=== PATIENT | male | born 1995 | race Two or more races ===

== ENCOUNTER 2018-05-23 16:10 | Emergency (ER) | payer SELFPAY ==
[~2018-05-23] VITALS: Ht 172.7 cm; Wt 90.7 kg
[2018-05-23 16:45] VITALS: BP 121/69
[2018-05-23] MEDS ORDERED: TYLENOL EXTRA500 MG ORAL (17:05)
[2018-05-23] MEDS ORDERED: CEPHALEXIN500 MG ORAL (17:05)
--- NOTE | 2018-05-23 17:05 | Emergency Room Report ---
History of Present Illness General Chief Complaint: Skin Rash/Abscess Source: Patient Present Illness HPI 22-year-old male patient presents ER complaining of skin infection for the past 2 days. Patient reports he had a pimple in his suprapubic region that grew in size and became erythematous and swollen. Reports pain. Reports mild drainage 2 days ago, states has not drained since that time. Denies fever, chest pain, shortness of breath, dysuria, hematuria. Reports not taking medication for relief of symptoms. reports girlfriend recently had similar symptoms. Reports hx of shaving pubic hair. Allergies: Coded Allergies: No Known Allergies (Unverified , 05/23/18) Patient History Past Medical History: see triage record Reviewed Nursing Documentation: PMH: Agreed; PSxH: Agreed Nursing Documentation-PMH Past Medical History: No Stated History Review of Systems All Other Systems: negative except mentioned in HPI Physical Exam Vital Signs Date Time Temp Pulse Resp B/P (MAP) Pulse Ox O2 Delivery O2 Flow Rate FiO2 05/23/18 16:25 97.9 88 17 121/69 98 Room Air Sp02 EP Interpretation: reviewed, normal General Appearance: well appearing, no apparent distress, alert, GCS 15, non- toxic Head: normocephalic, atraumatic Eyes: bilateral eye normal inspection, bilateral eye PERRL ENT: hearing grossly normal, normal pharynx, no angioedema, normal voice, uvula midline, moist mucus membranes Neck: full range of motion Respiratory: lungs clear, normal breath sounds, no rhonchi, no respiratory distress, no accessory muscle use, no wheezing, speaking full sentences Cardiovascular #1: regular rate, rhythm, no edema Gastrointestinal: non tender, soft, no mass, non-distended, no guarding, no rebound Genitourinary: no CVA tenderness Musculoskeletal: back normal, digits/nails normal, gait/station normal, normal range of motion, non-tender Neurologic: alert, oriented x3, responsive, motor strength/tone normal, sensory intact Psychiatric: mood/affect normal Skin: other - suprapubic: Infected hair follicle with surrounding erythema, mild edema, no drainage, indurated, no palpable mass, no red streaking Medical Decision Making PA Attestation Dr. Elias is my supervising Physician whom patient management has been discussed with. Diagnostic Impression: Primary Impression: Folliculitis ER Course Pt. presents to the ED c/o suprapubic skin infection. Ddx considered but are not limited to rash, cellulitis, abscess, sebaceous cyst , carbuncle, folliculitis. Does not require imaging at this time. Vital signs: are WNL, pt. is afebrile ED INTERVENTIONS: Physical exam consistent with cellulitis surrounding infected hair follicle. No palpable mass. Indurated, low suspicion for abscess, does not require I and D at this time. Will provide patient with accident discharge. Wound check in 2-3 days. apply warm compresses. Do not shave the area. Consult with general surgeon Dr. Traore who was kind enough to consult on this patient. agrees with outpatient treatment plan. ER precautions given. DISCHARGE: -Rx provided for Keflex -Rx provided for Tylenol At this time pt. is stable for d/c to home. Patient is resting comfortably, in no acute distress, nontoxic appearing. Will provide printed patient care instructions and any necessary prescriptions. Care plan and follow up instructions have been discussed with the patient prior to discharge. Patient instructed to follow-up with primary care provider in 2 - 3 days for wound recheck. Patient questions asked and answered. Patient reports understanding and agreement to treatment plan. ER precautions given. Patient instructed to return to ER immediately for any new or worsening of symptoms including but not limited to fever, worsening of pain symptoms, worsening of erythema, red streaking. - Please note that this Emergency Department Report was dictated using [employer] software, occasionally this can lead to erroneous entry secondary to interpretation by the dictation equipment. Last Vital Signs Date Time Temp Pulse Resp B/P (MAP) Pulse Ox O2 Delivery O2 Flow Rate FiO2 05/23/18 16:25 97.9 88 17 121/69 98 Room Air Disposition: HOME, SELF-CARE Condition: Stable Scripts Cephalexin* (KEFLEX*) 500 Mg Capsule 500 MG ORAL EVERY 12 HOURS, #14 CAP 0 Refills Prov: Derrick Hobbs P.A. 05/23/18 Acetaminophen* (TYLENOL EXTRA STRENGTH*) 500 Mg Tablet 500 MG ORAL Q8H PRN for Prn Headache/Temp > 101, #30 TAB 0 Refills Prov: Derrick Hobbs P.A. 05/23/18 Patient Instructions: Cellulitis, [id number], Folliculitis Additional Instructions: Followup with PCP or return to ER in 2-3 days for wound check. Take medications as instructed. Patient questions asked and answered. Apply warm compresses to affected area. Keep wound clean and dry. ER precautions given. Return to ER for new or worsening of symptoms including but not limited to chest pain, SOB, red streaking, worsening of abscess, intractible vomiting. Derrick Hobbs May 23, 2018 17:05
[2018-05-23 17:14] VITALS: BP 125/70
--- NOTE | 2018-05-23 17:15 | General Progress Note ---
Progress Note Progress Note Surgery 22M superficial cutaneous cellulitis. infected hair follicle / ingrown hair. 3cm x 4cm area of induration. no fluctuance. no drainage. tender no abscess on clinical exam. mainly cellulitis started 2-3 days ago as small "pimple" no acute surgical intervention recommended may form abscess and require I&D at later date but currently just cellulitis without abscess Oral abx outpatient f/u with pcp or surgery warm compress if worsening return to ED or clinic for re-evaluation thank you Unruly Traore May 23, 2018 17:15
== END 2018-05-23 18:30 | disposition home or self-care (01) ==
LOC: EMR 17:15
DX: L73.9 Follicular disorder, unspecified (principal)
CPT/HCPCS: 99283